=== PATIENT | male | born 1960 | race Caucasian/White ===

== ENCOUNTER 2016-05-13 21:29 | Emergency (ER) | payer OTHER ==
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
[~2016-05-13 21:29] MED LIST: ATIVAN; HCTZ; TEGRETOL XR; TOPROL XL
[2016-05-13] MEDS ORDERED: ROBAXIN500 MG PO (23:21)
== END 2016-05-13 23:21 | disposition home or self-care (01) ==
LOC: SED 21:29
DX: S13.4XXA Sprain of ligaments of cervical spine, initial encounter (principal); R51 Headache; Z88.8 Allergy status to other drugs, medicaments and biological substances; V49.40XA Driver injured in collision with unspecified motor vehicles in traffic accident, initial encounter; Y92.410 Unspecified street and highway as the place of occurrence of the external cause
CPT/HCPCS: 70450; 72125; 99284